=== PATIENT | female | born 1935 | race Caucasian/White ===

== ENCOUNTER → 2017-09-01 | Outpatient (CLI) | payer MEDICARE | END | disposition home or self-care (01) | LOC: CFH 09:47 | PROVIDERS: ATTEND Internal Medicine | DX: J98.11 Atelectasis (principal) | CPT/HCPCS: 71250 ==

== ENCOUNTER 2019-10-08 12:38 | Emergency (ER) | payer MEDICARE ==
[~2019-10-08] VITALS: Ht 152.4 cm; Wt 50.0 kg
[2019-10-08 12:49] VITALS: BP 135/66
--- NOTE | 2019-10-08 14:06 | NUR ---
plan for ct. as
--- NOTE | 2019-10-08 15:41 | NUR ---
BILATERAL VERTICAL NONDISPLACED SACRAL FRACTURES. provider in to see pt to discuss poc. as
== END 2019-10-08 16:09 | disposition home or self-care (01) ==
LOC: ED 13:04
DX: S32.10XA Unspecified fracture of sacrum, initial encounter for closed fracture (principal); I10 Essential (primary) hypertension; W18.30XA Fall on same level, unspecified, initial encounter; Y93.89 Activity, other specified; Y92.410 Unspecified street and highway as the place of occurrence of the external cause; Y99.8 Other external cause status
CPT/HCPCS: 72192; 99284

== ENCOUNTER 2020-07-30 08:34 | Inpatient (IN) | payer MEDICARE ==
[~2020-07-30] VITALS: Ht 152.4 cm; Wt 45.6 kg
--- NOTE | 2020-07-30 08:57 | NUR ---
BGL 141, 100 NS BY EMS. REPORT TO JEROME Dawson RN. PT SWABBED BY KIERRA LLOYD.
[2020-07-30] MEDS ORDERED: SODIUM CHLORIDE 0.9% 1,000ML IVBOLUS ONE (09:00)
[2020-07-30] MEDS ORDERED: CEFTRIAXONE PMX 1GM/50ML 50 ML ONE (10:02)
[2020-07-30 10:10] LABS: MEAN CORPUSCULAR HGB CONC 34.5 g/dL (32.4-35.8); MEAN PLATELET VOLUME 8.4 fL (7.4-10.4); PLATELET COUNT 125 x10^3/uL (130-400); RED BLOOD COUNT 3.75 x10^6/uL (3.82-5.3); RED CELL DISTRIBUTION WIDTH 14.7 % (9.6-15.2)
[2020-07-30 10:13] LABS: ALBUMIN 3.6 g/dL (3.4-5.0); ANION GAP 7 mmol/L (5-15); CALCIUM 9.3 mg/dL (8.5-10.1); CHLORIDE 100 mmol/L (98-107)
[2020-07-30 10:14] LABS: CREATININE 0.82 mg/dL (0.55-1.02)
[2020-07-30 10:22] LABS: RAPID INFLUENZA A Negative (Negative); RAPID INFLUENZA B Negative (Negative)
[2020-07-30] MEDS ORDERED: AZITHROMYCIN 500 MG in SODIUM CHLORIDE 0.9% 250 ML IV ONE (10:30)
[2020-07-30 11:18] LABS: MD YES
[2020-07-30 11:21] LABS: BAND#(MANUAL) 0.12 x10^3/uL; BANDS%(MANUAL) 3 % (0-7); LYMPH#(MANUAL) 0.66 x10^3/uL (1-3.4); LYMPHS% (MANUAL) 16 % (22-44); MONOS#(MANUAL) 0.94 x10^3/uL (0.3-2.7); MONOS% (MANUAL) 23 % (2-9); SEG#(MANUAL) 2.38 x10^3/uL (1.8-6.8); SEGS% (MANUAL) 58 % (42-75)
[2020-07-30 11:22] LABS: <PLATELET ESTIMATE> DECREASED; <PLT MORPHOLOGY> NORMAL PLT MORPH; <RBC MORPHOLOGY> NORMAL
[2020-07-30] MEDS ORDERED: CEFTRIAXONE PMX 1GM/50ML 50 ML IV ONE (12:00)
[2020-07-30 12:21] LABS: MICROSCOPIC INDICATED
[2020-07-30] MEDS ORDERED: SODIUM CHLORIDE FLUSH 10ML SYR IVF PRN (13:00)
[2020-07-30] MEDS ORDERED: SODIUM CHLORIDE 0.9% 1,000 ML IV ONE (13:00)
[2020-07-30] MEDS ORDERED: OMNIPAQUE 350 MG/ML, 75ML BOTTLE ONE (13:08)
--- NOTE | 2020-07-30 13:36 | NUR ---
PT'S HR HIGH 140'S-170'S WITH A LOT OF ARTIFACT. REPLACED ALL LEADS AND CHECKED CONNECTIONS. ARTIFACT STILL PRESENT. RPT EKG ORDERED.
--- NOTE | 2020-07-30 13:50 | NUR ---
EKG SHOWS A FIB W/RVR. PT DENIES HX OF A FIB. PROVIDER NOTIFIED.
[2020-07-30] MEDS ORDERED: ENOXAPARIN 40 MG/0.4 ML SQ SCH (14:00)
[2020-07-30] MEDS ORDERED: PHARMACY MAY ADJ FOR RENAL FX MC PRN (14:00)
[2020-07-30] MEDS ORDERED: ACETAMINOPHEN 325 MG TABLET PO PRN (14:00)
[2020-07-30] MEDS ORDERED: CEFTRIAXONE PMX 1GM/50ML 50 ML IVPB SCH (14:00)
[2020-07-30] MEDS ORDERED: DILTIAZEM 5 MG/ML, 5ML ONE (14:16)
[2020-07-30] MEDS ORDERED: DILTIAZEM 5 MG/ML, 5ML IVPush ONE (14:30)
[2020-07-30] MEDS ORDERED: ENOXAPARIN 40 MG/0.4 ML ONE (14:31)
[2020-07-30] MEDS ORDERED: ATEN50TA41 PO (14:50)
[2020-07-30] MEDS ORDERED: ATENOLOL 50 MG TABLET PO ONE (15:02)
--- NOTE | 2020-07-30 15:23 | NUR ---
PT TRANSFERRED TO HOSP BED. PUREWICK PLACED FOR PT COMFORT.
[2020-07-30] MEDS ORDERED: DILTIAZEM 30 MG TABLET PO SCH (15:30)
[2020-07-30] MEDS ORDERED: ACETAMINOPHEN 325 MG TABLET ONE (15:45)
--- NOTE | 2020-07-30 15:48 | NUR ---
BREAK RN: PT MEDICATED PER EMAR FOR AFIB AND FEVER. PT DENIES CP/SOB AT THIS TIME. HR AFIB RATE 115-140. REPORT TO MALLY QUISPE ON FLOOR
[2020-07-30 16:34] VITALS: BP 94/53
[2020-07-30] MEDS ORDERED: hydrALAzine 20 MG/ML, 1ML IV PRN (18:00)
[2020-07-30] MEDS ORDERED: DEXAMETHASONE 1 MG TABLET PO SCH (18:30)
[2020-07-30 19:36] VITALS: BP 98/52
[2020-07-30] MEDS: ASCORBIC ACID 500 MG TABLET PO SCH (20:47)
[2020-07-30] MEDS: FAMOTIDINE 20 MG TABLET PO SCH (20:48)
[2020-07-30] MEDS: DEXAMETHASONE 4 MG TABLET PO SCH (21:14)
[2020-07-31 00:52] VITALS: BP 102/55
[2020-07-31 06:31] VITALS: BP 102/57
[2020-07-31 06:51] LABS: BASOPHILS % (AUTO) 0 % (0-1); EOSINOPHILS % (AUTO) 0 % (1-7); LYMPHOCYTES % (AUTO) 18 % (22-44); MEAN CORPUSCULAR HEMOGLOBIN 30.8 pg (27.0-34.8); MEAN CORPUSCULAR HGB CONC 34.1 g/dL (32.4-35.8); MEAN PLATELET VOLUME 8.5 fL (7.4-10.4); MONOCYTES % (AUTO) 9 % (2-9); NEUTROPHILS % (AUTO) 73 % (42-75); PLATELET COUNT 125 x10^3/uL (130-400); RED BLOOD COUNT 3.36 x10^6/uL (3.82-5.3); RED CELL DISTRIBUTION WIDTH 14.7 % (9.6-15.2)
[2020-07-31 06:53] LABS: MD NO
[2020-07-31 06:58] LABS: ALBUMIN 2.9 g/dL (3.4-5.0); ANION GAP 8 mmol/L (5-15); CALCIUM 8.4 mg/dL (8.5-10.1); CHLORIDE 106 mmol/L (98-107)
[2020-07-31 07:10] LABS: ALANINE AMINOTRANSFERASE 31 U/L (12-78); ALKALINE PHOSPHATASE 103 U/L (45-117); BILIRUBIN,TOTAL 0.4 mg/dL (0.2-1.0); CREATININE 0.65 mg/dL (0.55-1.02); TOTAL PROTEIN 6.6 g/dL (6.4-8.2)
[2020-07-31] MEDS: ASCORBIC ACID 500 MG TABLET PO SCH ×2 (09:02→20:14)
[2020-07-31] MEDS: DEXAMETHASONE 4 MG TABLET PO SCH (09:03)
[2020-07-31] MEDS: ZINC SULFATE 220 MG CAPSULE PO SCH (09:03)
[2020-07-31] MEDS: FAMOTIDINE 20 MG TABLET PO SCH (09:03)
[2020-07-31] MEDS ORDERED: CEFTRIAXONE PMX 1GM/50ML 50 ML IVPB SCH (10:00)
[2020-07-31] MEDS ORDERED: RISP1TAB45 PO (10:15)
[2020-07-31] MEDS ORDERED: LISI-170 PO (10:15)
[2020-07-31] MEDS: FLUTICASONE/VILANTEROL 100-25MCG/INH INH SCH (10:25)
[2020-07-31 12:33] VITALS: BP 126/67
[2020-07-31] MEDS ORDERED: ENOXAPARIN 30 MG/0.3 ML SQ SCH (14:00)
[2020-07-31 19:23] VITALS: BP 105/58
[2020-08-01 01:20] VITALS: BP 105/56
[2020-08-01 06:37] VITALS: BP 106/58
[2020-08-01] MEDS ORDERED: FAMO20TA7 PO (08:25)
[2020-08-01] MEDS ORDERED: DEXA4TAB66 PO (08:25)
[2020-08-01] MEDS ORDERED: LOPE2CAP PO (08:25)
[2020-08-01] MEDS ORDERED: IPRA3AMP30 PO (08:25)
[2020-08-01] MEDS ORDERED: LOPERAMIDE 2 MG CAPSULE PO ONE (08:30)
[2020-08-01] MEDS: ZINC SULFATE 220 MG CAPSULE PO SCH (08:38)
[2020-08-01] MEDS: FAMOTIDINE 20 MG TABLET PO SCH (08:38)
[2020-08-01] MEDS: ASCORBIC ACID 500 MG TABLET PO SCH (08:38)
[2020-08-01] MEDS: DEXAMETHASONE 4 MG TABLET PO SCH (08:38)
[2020-08-01] MEDS: FLUTICASONE/VILANTEROL 100-25MCG/INH INH SCH (08:38)
== END 2020-08-01 09:55 | disposition home health service (06) | DRG 177 ==
LOC: ED 09:36 → SUATTDRO 12:23 → EDIP 12:32 → 4WST 16:20
PROVIDERS: ADMIT Internal Medicine; ATTEND Hospitalist
DX: U07.1 COVID-19 (principal); J12.89 Other viral pneumonia; J96.01 Acute respiratory failure with hypoxia; N17.0 Acute kidney failure with tubular necrosis; J98.11 Atelectasis; N30.90 Cystitis, unspecified without hematuria; E86.0 Dehydration; I10 Essential (primary) hypertension; Z66 Do not resuscitate; R53.81 Other malaise
CPT/HCPCS: 36415; 71045; 71260; 80048; 80053; 81001; 82040; 83605; 83615; 83735; 84100; 84145; 84443; 85025; 85379; 87040; 87086; 87400; 93005; 96365; 96375; 99285; G0378; J0456; J0696; J1650; Q9967; J7030; J7050; U0003

== ENCOUNTER 2020-08-03 13:00 | Inpatient (IN) | payer MEDICARE ==
[~2020-08-03] VITALS: Ht 152.4 cm; Wt 52.1 kg
[~2020-08-03 13:00] MED LIST: ATEN50TA41 PO; DEXA4TAB66 PO; FAMO20TA7 PO; IPRA3AMP30 PO; LISI-170 PO; LOPE2CAP PO; RISP1TAB45 PO
--- NOTE | 2020-08-03 13:13 | NUR ---
PT BIB EMS FOR WORSENING COVID SYMPTOMS. RECENT DC FROM ER 2 DAYS AGO. BASELINE 2 L O2. INCREASED TO 4 AT HOME TO 84%. EMS WAS ABLE TO GET 94% SPO2. PT PLACED ON 10 L NON REBREATHER NOW 91%. INCREASED SOB, COUGH, FEVER 101, DIARRHEA. PLACED ON MONITOR, GIVEN WARM BLANKETS.
[2020-08-03] MEDS ORDERED: SODIUM CHLORIDE 0.9% 1,000ML IVBOLUS ONE (13:30)
[2020-08-03] MEDS ORDERED: SODIUM CHLORIDE FLUSH 10ML SYR IVF ONE (13:30)
[2020-08-03 13:59] LABS: MEAN CORPUSCULAR HEMOGLOBIN 30.9 pg (27.0-34.8); MEAN CORPUSCULAR HGB CONC 34.3 g/dL (32.4-35.8); MEAN PLATELET VOLUME 7.8 fL (7.4-10.4); PLATELET COUNT 186 x10^3/uL (130-400); RED BLOOD COUNT 3.42 x10^6/uL (3.82-5.3); RED CELL DISTRIBUTION WIDTH 15.1 % (9.6-15.2)
[2020-08-03] MEDS ORDERED: ACETAMINOPHEN 500 MG TABLET PO ONE (14:00)
--- NOTE | 2020-08-03 14:08 | NUR ---
REPORT TO ELSA BAL
[2020-08-03 14:11] LABS: CALCIUM 8.7 mg/dL (8.5-10.1); CHLORIDE 102 mmol/L (98-107)
[2020-08-03 14:17] LABS: ALANINE AMINOTRANSFERASE 41 U/L (12-78); ALKALINE PHOSPHATASE 89 U/L (45-117); BILIRUBIN,TOTAL 0.6 mg/dL (0.2-1.0); CREATININE 0.78 mg/dL (0.55-1.02); TROPONIN I 0.031 ng/mL (0.000-0.045)
[2020-08-03] MEDS ORDERED: ACETAMINOPHEN 500 MG TABLET ONE (14:17)
[2020-08-03 14:20] LABS: MD YES
[2020-08-03 14:26] LABS: ANION GAP 10 mmol/L (5-15)
[2020-08-03 14:34] LABS: BAND#(MANUAL) 0.43 x10^3/uL; BANDS%(MANUAL) 4 % (0-7); LYMPH#(MANUAL) 1.19 x10^3/uL (1-3.4); LYMPHS% (MANUAL) 11 % (22-44); METAMYELOCYTES# (MANUAL) 0.22 x10^3/uL (0-0); METAMYELOCYTES% (MANUAL) 2 % (0-1); MONOS#(MANUAL) 1.51 x10^3/uL (0.3-2.7); MONOS% (MANUAL) 14 % (2-9); SEG#(MANUAL) 7.45 x10^3/uL (1.8-6.8); SEGS% (MANUAL) 69 % (42-75)
[2020-08-03 14:35] LABS: <PLATELET ESTIMATE> ADEQUATE; <PLT MORPHOLOGY> NORMAL PLT MORPH; <RBC MORPHOLOGY> NORMAL
--- NOTE | 2020-08-03 14:54 | NUR ---
PT RESPIRATORY DECOMPENSATING. RR 30-35 15L O2 NON REBREATHER 71%. MD GRISSOM AT BEDSIDE DISCUSSING POC. PT CONFIRMS TO BE DNR/DNI. THIS RN WITNESS MD CONVERSATION W PATIENT ABOUT CODE STATUS. TO MAKE PT COMFORTABLE, WILL PAGE RT FOR OPTIFLOW.
[2020-08-03] MEDS ORDERED: PIPERACILLIN/TAZO/PMX 3.375GM 50 ML IV ONE (15:00)
[2020-08-03] MEDS ORDERED: PIPERACILLIN/TAZO/PMX 3.375GM 50 ML ONE (15:00)
[2020-08-03] MEDS ORDERED: DEXAMETHASONE 4 MG/ML, 1ML IVPush ONE ×2 (15:00)
[2020-08-03] MEDS ORDERED: DEXAMETHASONE 4 MG/ML, 1ML ONE (15:00)
--- NOTE | 2020-08-03 15:10 | NUR ---
RT AT BEDSIDE TO SWET UP OPTIFLOW
[2020-08-03 15:46] LABS: CLOSTRIDIUM DIFFICILE ANTIGEN NEGATIVE; CLOSTRIDIUM DIFFICILE TOXIN NEGATIVE (Negative)
--- NOTE | 2020-08-03 16:30 | NUR ---
PT TOLERATING OPTI FLOW, PT APPEARS MORE COMFORTABLE. SPO2 AT 91%. RR 35
[2020-08-03] MEDS ORDERED: ONDANSETRON ODT 4 MG PO PRN (17:00)
[2020-08-03] MEDS ORDERED: ONDANSETRON 2MG/ML, 2ML IVPush PRN (17:00)
[2020-08-03] MEDS ORDERED: BUTALB/APAP/CAFFEINE 50MG/325MG/40MG PO PRN ×2 (17:00)
[2020-08-03] MEDS: AZITHROMYCIN 500 MG in SODIUM CHLORIDE 0.9% 250 ML IV SCH (17:00)
[2020-08-03] MEDS ORDERED: BACLOFEN 10 MG TABLET PO PRN (17:00)
[2020-08-03] MEDS ORDERED: ACETAMINOPHEN 325 MG TABLET PO PRN (17:00)
[2020-08-03] MEDS ORDERED: ENALAPRILAT 1.25 MG/ML, 2ML IVPush PRN (17:00)
[2020-08-03] MEDS ORDERED: LABETALOL 5MG/ML, 20ML IVPush PRN (17:00)
[2020-08-03] MEDS ORDERED: HYDROmorphone 2 MG/ML, 1ML IVPush PRN (17:00)
[2020-08-03] MEDS ORDERED: IBUPROFEN 600 MG TABLET PO PRN (17:00)
[2020-08-03] MEDS ORDERED: GUAIFENESIN/DM 200-20MG, 10ML UDC PO PRN (17:00)
--- NOTE | 2020-08-03 17:09 | NUR ---
RACHEAL AZALIA AT BEDSIDE ASSESSING PT. PLAN FOR ADMIT. WILL ORDER HOSPITAL BED.
[2020-08-03] MEDS ORDERED: REMDESIVIR 200 MG in SODIUM CHLORIDE 0.9% 250 ML IVPB ONE (17:30)
[2020-08-03] MEDS ORDERED: ASCORBIC ACID 500 MG TABLET ONE (17:41)
[2020-08-03] MEDS ORDERED: methylPREDNISolone SOD SUCC 125 MG/2 ML ONE (17:42)
[2020-08-03 17:55] LABS: HCT (SEDRATE) 30.8 % (34.6-47.8)
[2020-08-03] MEDS: ASCORBIC ACID 500 MG TABLET PO SCH (18:07)
[2020-08-03] MEDS: methylPREDNISolone SOD SUCC 125 MG/2 ML IV SCH ×2 (18:07→20:44)
--- NOTE | 2020-08-03 18:22 | NUR ---
PT TO HOSPITAL BED, ASSISTED TO BEDSIDE COMMODE.
--- NOTE | 2020-08-03 18:35 | NUR ---
REPORT TO DONNIE
--- NOTE | 2020-08-03 18:52 | NUR ---
BEDSIDE REPORT RECEIVED FROM ELSA BAL
--- NOTE | 2020-08-03 18:59 | NUR ---
PT UP TO BEDSIDE COMMODE WITH THIS RN. NAD, VSS.
[2020-08-03 19:50] VITALS: BP 118/59
[2020-08-03] MEDS: MELATONIN 5 MG TABLET PO SCH (20:44)
[2020-08-03] MEDS: ENOXAPARIN 30 MG/0.3 ML SQ SCH (20:44)
[2020-08-04] MEDS ORDERED: MIRT15TA94 PO (00:49)
[2020-08-04 01:38] VITALS: BP 122/73
[2020-08-04 05:32] LABS: INTERNATIONAL NORMALIZED RATIO 1.02 (0.93-1.1); PROTHROMBIN TIME 10.8 Seconds (9.6-11.5)
[2020-08-04 05:45] LABS: MEAN CORPUSCULAR HEMOGLOBIN 30.4 pg (27.0-34.8); MEAN CORPUSCULAR HGB CONC 33.9 g/dL (32.4-35.8); MEAN PLATELET VOLUME 7.7 fL (7.4-10.4); PLATELET COUNT 224 x10^3/uL (130-400); RED BLOOD COUNT 3.88 x10^6/uL (3.82-5.3); RED CELL DISTRIBUTION WIDTH 15.1 % (9.6-15.2)
[2020-08-04 05:46] LABS: CHLORIDE 106 mmol/L (98-107)
[2020-08-04 05:52] LABS: ALANINE AMINOTRANSFERASE 39 U/L (12-78); ALBUMIN 2.6 g/dL (3.4-5.0); ALKALINE PHOSPHATASE 89 U/L (45-117); ANION GAP 6 mmol/L (5-15); BILIRUBIN,TOTAL 0.5 mg/dL (0.2-1.0); CALCIUM 8.5 mg/dL (8.5-10.1); CREATININE 0.74 mg/dL (0.55-1.02); TOTAL PROTEIN 6.8 g/dL (6.4-8.2)
[2020-08-04 06:51] LABS: MD YES
[2020-08-04 06:53] LABS: <RBC MORPHOLOGY> NORMAL; BAND#(MANUAL) 0.51 x10^3/uL; BANDS%(MANUAL) 4 % (0-7)
[2020-08-04 06:54] VITALS: BP 118/67
[2020-08-04 06:54] LABS: <PLATELET ESTIMATE> ADEQUATE; <PLT MORPHOLOGY> NORMAL PLT MORPH; MONOS#(MANUAL) 0.38 x10^3/uL (0.3-2.7); MONOS% (MANUAL) 3 % (2-9)
[2020-08-04 06:57] LABS: LYMPH#(MANUAL) 0.64 x10^3/uL (1-3.4); LYMPHS% (MANUAL) 5 % (22-44); SEG#(MANUAL) 11.26 x10^3/uL (1.8-6.8); SEGS% (MANUAL) 88 % (42-75)
[2020-08-04] MEDS: methylPREDNISolone SOD SUCC 125 MG/2 ML IV SCH ×3 (08:17→20:31)
[2020-08-04] MEDS: ASCORBIC ACID 500 MG TABLET PO SCH ×2 (08:18→17:35)
[2020-08-04] MEDS: ENOXAPARIN 30 MG/0.3 ML SQ SCH ×2 (08:18→20:31)
[2020-08-04] MEDS ORDERED: CHOLECALCIFEROL 5,000u TAB PO SCH (09:00)
[2020-08-04] MEDS ORDERED: FLUTICASONE/VILANTEROL 100-25MCG/INH INH SCH (09:00)
[2020-08-04] MEDS ORDERED: ZINC SULFATE 220 MG CAPSULE PO SCH (09:00)
[2020-08-04] MEDS ORDERED: SENNA/DOCUSATE TABLET PO SCH (09:00)
[2020-08-04] MEDS ORDERED: MULTIVITS,STRESS FORMULA 1 TABLET PO SCH (09:00)
[2020-08-04 12:55] VITALS: BP 148/78
[2020-08-04] MEDS ORDERED: REMDESIVIR 100 MG in SODIUM CHLORIDE 0.9% 250 ML IVPB SCH (17:30)
[2020-08-04] MEDS: AZITHROMYCIN 500 MG in SODIUM CHLORIDE 0.9% 250 ML IV SCH (17:34)
[2020-08-04 18:52] VITALS: BP 159/94
[2020-08-04] MEDS: MELATONIN 5 MG TABLET PO SCH (20:28)
[2020-08-04] MEDS ORDERED: ATENOLOL 50 MG TABLET ONE (21:33)
[2020-08-04] MEDS ORDERED: ATENOLOL 50 MG TABLET PO SCH (22:00)
[2020-08-04 23:34] VITALS: BP 158/105
[2020-08-05] MEDS ORDERED: CEFTRIAXONE PMX 2GM/50ML 50 ML IVPB SCH (00:30)
[2020-08-05] MEDS ORDERED: SCOPOLAMINE 1MG PATCH TD PRN (00:30)
[2020-08-05] MEDS ORDERED: LORazepam 2 MG/ML, 1ML IVPush PRN (00:30)
[2020-08-05] MEDS ORDERED: ATROPINE OPHTH SOLN 1%, 5ML PO PRN (00:30)
[2020-08-05] MEDS ORDERED: FUROSEMIDE 40 MG/4 ML IV ONE (00:30)
[2020-08-05] MEDS ORDERED: ONDANSETRON 2MG/ML, 2ML IVPush PRN (00:30)
[2020-08-05] MEDS ORDERED: MORPHINE SULFATE 4 MG/ML, 1ML IVPush PRN (00:30)
[2020-08-05] MEDS ORDERED: LORazepam 2 MG/ML, 1ML ONE (00:42)
[2020-08-05] MEDS ORDERED: ATENOLOL 50 MG TABLET PO SCH (22:00)
== END 2020-08-05 01:10 | disposition expired | DRG 177 ==
LOC: ED 15:22 → EDIP 16:00 → 4WST 19:21
PROVIDERS: ADMIT Hospitalist; ATTEND Family Medicine
DX: U07.1 COVID-19 (principal); J12.89 Other viral pneumonia; J96.01 Acute respiratory failure with hypoxia; E44.1 Mild protein-calorie malnutrition; D64.9 Anemia, unspecified; I10 Essential (primary) hypertension; M41.9 Scoliosis, unspecified; Z90.710 Acquired absence of both cervix and uterus; Z68.22 Body mass index [BMI] 22.0-22.9, adult; Z79.899 Other long term (current) drug therapy; Z90.49 Acquired absence of other specified parts of digestive tract
CPT/HCPCS: 36415; 71045; 80053; 83605; 83735; 83880; 84484; 85025; 85610; 85651; 87040; 87324; 93005; G0378; J0456; J1100; J1170; J1650; J2543; J2060; J2930; J7030; J7050